=== PATIENT | female | born 1975 | race Caucasian/White ===

== ENCOUNTER 2021-01-28 07:45 | Outpatient (RCR) | payer BC, SELFPAY ==
--- NOTE | 2021-01-28 08:02 | PTOPEVAL ---
Thank you for referring Bella Lackey to [facility] [place].? The patient is scheduled to be seen for therapy? ____x/week for ___ weeks. Please review, sign, date and return this plan of care CYDNEY. I agree with and certify that the following plan of care is medically necessary. Referring Physician Date Admitting Provider: Attending Provider: Suzanne Hampton, CRATER AND PACKER Referring Provider: *PT Outpatient Evaluation Start: 01/28/21 06:58 Freq: Status: Active Protocol: Document 01/28/21 06:58 ACR (Rec: 01/28/21 07:59 ACR [id number]) Therapy Assessment Status Assessment Status Assessment Status Evaluation Evaluation Information Problem Diagnosis R shoulder pain Subjective Information Patient states that she was Query Text:As Reported By Patient/ lifting weights back in October Family and she let it go, but it did not get any better. She states that 2 weeks ago she was put on muscle relaxers and she was able to stretch a little bit, but it continues to be painful. She states that she has difficulty reaching behind her back to wash it and reaching above her head. NSAID 's occasionally help. She states the pain is worst in the morning and she is unable to lay on that side. 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 Patient states she is still able to work but she has a continuous pull throughout her entire work day. The patient states she got an X- ray which was negative. Patient states that her goal for therapy is to decrease pain. Prior Level of Function Activity Level (Last 3 Months) Occupation hairdresser Hand Dominance Right Activity of Daily Living Ability Independent Indoor/Home Mobility Independent Community Mobility Independent Stairs Ability Independent Functional Cognition (Planning, Shopping Independent , Taking Medications) Cooking Yes Cleaning Yes Laundry Yes Shopping Yes Driving
--- NOTE | 2021-02-06 08:58 | PTOPEVAL ---
Thank you for referring Bella Lackey to [facility].? The patient is scheduled to be seen for therapy? ____x/week for ___ weeks. Please review, sign, date and return this plan of care YCDNEY. I agree with and certify that the following plan of care is medically necessary. Referring Physician Date Admitting Provider: Attending Provider: Suzanne Hampton, PUBLISHER ASSISTANT Referring Provider: *PT Outpatient Evaluation Start: 01/28/21 06:58 Freq: Status: Active Protocol: Document 02/06/21 08:00 [facility] (Rec: 02/06/21 08:57 [facility] [id number]) Therapy Assessment Status Assessment Status Assessment Status Progress Evaluation Information Problem Diagnosis R shoulder pain Subjective Information patient reports she feels Query Text:As Reported By Patient/ good this . she reports Family she has no pain in the R shoulder this morning. she reports she was not as sore as she expected to be after her last visit Pain Assessment Timing of Pain Assessment Timing of Pain Assessment Assessment Pain Scale Pain Scale Used Numeric (1 - 10) Self Report Pain Assessment Right Shoulder(s) Reported Pain Level 0 Greatest Pain Intensity 3 Pain Score Pain Score 0: Self Report Interventions Used Interventions Used By Clinicians Activity or ADL's,Education, Electrical Stimulation, Exercise,Heat Upper Extremity Range of Motion Scapular/ Shoulder Range of Motion Right Shoulder Flexion - Active 162 Shoulder Medial Rotation - Active 65 Shoulder Lateral Rotation - Active 90 Upper Extremity Muscle Strength Testing Scapular/Shoulder Right Shoulder Flexion Strength 4+ Good + Shoulder Abduction Strength 4+ Good + Shoulder Medial Rotation Strength 5 Normal Shoulder Lateral Rotation Strength 4+ Good + Elbow/Forearm Right Elbow Flexion Strength 5 Normal Elbow Extension Strength 5 Normal Palpation Assessment Palpation Palpation tenderness to palpation over the biceps long head/bicipital groove of the R shoulder noted last treatment is decreased this date. General Exercise General Exercises Exercise Description -PROM shoulder all planes with Query Text:Record Sets, Reps, focus on flexion and IR x 8 Resistance, and Position min -tband green IR and ER x 20 with towel roll under elbow -tband green rows and extension x20
--- NOTE | 2021-02-20 08:47 | PTOPEVAL ---
Thank you for referring Bella Lackey to [facility].? The patient is scheduled to be seen for therapy? ____x/week for ___ weeks. Please review, sign, date and return this plan of care CYDNEY. I agree with and certify that the following plan of care is medically necessary. Referring Physician Date Admitting Provider: Attending Provider: Suzanne Hampton, OIL FI[employer] CASER Referring Provider: *PT Outpatient Evaluation Start: 01/28/21 06:58 Freq: Status: Active Protocol: Document 02/20/21 08:02 ACR (Rec: 02/20/21 08:47 ACR [id number]) Therapy Assessment Status Assessment Status Assessment Status Discharge Evaluation Information Problem Diagnosis R shoulder pain Onset 01/27/21 Subjective Information Patient reports that since Query Text:As Reported By Patient/ beginning therapy she no Family longer has a lot of pain, but has some pulling. She reports she is able to reach behind her back now. She reports she can get through a whole work day without intense pain. Pain Assessment Timing of Pain Assessment Timing of Pain Assessment Assessment Pain Scale Pain Scale Used Numeric (1 - 10) Self Report Pain Assessment Right Shoulder(s) Reported Pain Level 0 Greatest Pain Intensity 1 Pain Score Pain Score 0: Self Report Interventions Used Interventions Used By Clinicians Activity or ADL's,Exercise Upper Extremity Range of Motion Scapular/ Shoulder Range of Motion Right Shoulder Flexion - Active 168 Shoulder Medial Rotation - Passive 72 Shoulder Lateral Rotation - Active 84 Upper Extremity Muscle Strength Testing Scapular/Shoulder Left Shoulder Flexion Strength 5 Normal Shoulder Abduction Strength 5 Normal Shoulder Medial Rotation Strength 5 Normal Shoulder Lateral Rotation Strength 5 Normal Right Shoulder Flexion Strength 4+ Good + Shoulder Abduction Strength 5 Normal Shoulder Medial Rotation Strength 5 Normal Shoulder Lateral Rotation Strength 4+ Good + General Exercise General Exercises Exercise Description - PROM shoulder all planes Query Text:Record Sets, Reps, with focus on flexion and IR x Resistance, and Position 8 min - 3# ball on shelf x 10 - tband green IR and ER x 25 with towel roll under elbow - tband green rows and extension x25 each bilat - tband variable isometric flexion x25 with 5 second holds
== END 2021-02-20 10:27 | disposition home or self-care (01) ==
LOC: CHSPT 07:45
PROVIDERS: PCP Nurse Practitioner Family; Visit Provider Nurse Practitioner Family
DX: M25.511 Pain in right shoulder (principal)
CPT/HCPCS: 97014; 97110; 97140; 97161; 97530; G0283

== ENCOUNTER → 2021-03-13 07:34 | Outpatient (CLI) | payer BC, SELFPAY ==
--- NOTE | ~2021-03-13 | MR_ITS ---
EXAMINATION: MR shoulder RT wo con DATE: 03/13/2021 08:32 INDICATION: Right shoulder pain. TECHNIQUE: Magnetic resonance imaging (MRI) of the right shoulder was performed without intravenous c ontrast. Sequences included axial PD-weighted FS FSE, coronal oblique PD-weighted FS FSE and T2-weigh bridget FS FSE, and sagittal oblique T2-weighted FS FSE and T1-weighted FSE. COMPARISON: None. FINDINGS: Coracoacromial arch: The acromion undersurface is flat in morphology (type I). The acromioclavicular joint is normal. Ther e is mild subacromial/subdeltoid bursitis. Rotator cuff: There is mild tendinopathy of the conjoined portion of supraspinatus and infraspinatus tendons. Teres minor tendon is normal. Subscapularis tendon is normal. There is no asymmetric fatty atrophy of the rotator cuff muscle bellies. Biceps tendon and glenoid labrum: Biceps tendon is in bicipital groove. There is mild tendinopathy of the biceps anchor. The glenoid la gillian is normal. Fluid: There is no glenohumeral joint effusion. Bones/cartilage: The humeral head cartilage is normal. The glenoid cartilage is normal. IMPRESSION: 1. Mild rotator cuff tendinopathy. No tear. 2. Mild biceps tendinopathy. 3. Mild subacromial/subdeltoid bursitis. Reviewed, dictated and finalized at location A. DER AND CHIEF EXECUTIVE OFFICER
== END ==
PROVIDERS: PCP Family Medicine; Visit Provider Nurse Practitioner Family
DX: M25.511 Pain in right shoulder (principal); M75.51 Bursitis of right shoulder
CPT/HCPCS: 73221

== ENCOUNTER 2023-03-02 17:02 | Emergency (ER) | payer BC, SELFPAY ==
[2023-03-02 17:02] VITALS: BP 146/73; PULSE 82; RESP 18; TEMP 36.7; O2SAT 99
--- NOTE | 2023-03-02 17:19 | ED.WOUNDLAC ---
HPI - Wound/Laceration General Chief Complaint: Wound/Laceration Stated Complaint: LACERATION Source: patient Mode of arrival: ambulatory Limitations: no limitations History of Present Illness HPI narrative: patient works in a hair salon, accidentally injected the tip of the left middle finger by a scissor 7 hours prior to arrival. Patient came because the bleeding can not stop. On arrival to the ED, no active bleeding. Related Data Home Medications Medication Instructions Recorded Confirmed No Home Medications 03/02/23 03/02/23 Allergies Allergy/AdvReac Type Severity Reaction Status Date / Time No Known Allergies Allergy Verified 03/02/23 17:04 Review of Systems Review of Systems: All systems reviewed & are unremarkable except as noted in HPI and below Exam Narrative: General appearance: Well-developed, well-nourished Skin: Left middle finger showed 5 x 3 mm skin avulsion very superficial no active bleeding Vascular: Normal peripheral pulses, normal capillary refill. Musculoskeletal: Normal range of motion, nontender back Neurologic: Alert and oriented ?3, Course Vital Signs Vital signs: Vital Signs Temperature 36.7 C 03/02/23 17:02 Pulse Rate 82 03/02/23 17:02 Respiratory Rate 18 03/02/23 17:02 Blood Pressure 146/73 H 03/02/23 17:02 Pulse Oximetry 99 03/02/23 17:02 Oxygen Delivery Room Air 03/02/23 17:02 Temperature 36.7 C 03/02/23 17:02 Pulse Rate 82 03/02/23 17:02 Respiratory Rate 18 03/02/23 17:02 Blood Pressure 146/73 H 03/02/23 17:02 Pulse Oximetry 99 03/02/23 17:02 Oxygen Delivery Room Air 03/02/23 17:02 Procedures Laceration Laceration 1: Date: 03/02/23 Time: 17:22 Site: other ( left middle finger) Side (If applicable): left Size (cm): 0.5 Description: other ( skin avulsion) Depth: simple, single layer Pre-repair: wound explored ====== Skin Level ====== Skin layer closed with: dermabond ====== Subcutaneous Layer ====== ====== Muscle Layer ====== ====== Tendon Layer ====== MDM - Wound/Laceration MDM Narrative Medical decision making narrative: 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 Patient rates the procedure well Differential Diagnosis Differential diagnosis: Likely avulsion of skin Critical Care Time Critical Care Time Critical Care Time: No Discharge Plan Discharge Clinical Impression: Avulsion of skin Patient Disposition: Home, Self-Care Condition: Stable Instructions: Skin Avulsion (ED), Skin Adhesive Care (ED) Additional Instructions: Return if symptoms are worsening , call your family physician for appointment, take Tylenol as as needed for aches and pain, continue home medications. Prescriptions: No Action No Home Medications Follow-up/Referrals: Cheikh,Fabby Abraham APRN [Primary Care Provider] -
[2023-03-02] MEDS: TETANUS,DIPHTHERIA,AC PERTUSSIS ADULT 0.5 ML (ADACEL) IM (17:35)
== END 2023-03-02 17:38 | disposition home or self-care (01) ==
PROVIDERS: Emergency Provider Emergency Medicine; PCP Nurse Practitioner
DX: S61.213A Laceration without foreign body of left middle finger without damage to nail, initial encounter (principal); Z23 Encounter for immunization; W27.2XXA Contact with scissors, initial encounter
CPT/HCPCS: 12001; 90471; 90715; 99282